=== PATIENT | female | born 1975 | race American Indian/Alaskan Native ===

== ENCOUNTER 2018-03-23 20:45 | Emergency (ER) | payer OTHER ==
[2018-03-23] MEDS ORDERED: TYLENOL ONE (21:10)
[2018-03-23] MEDS ORDERED: TYLENOL PO ONE (21:12)
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
[2018-03-24 02:43] VITALS: BP 124/78
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
[2018-03-24] MEDS ORDERED: NORCO 7.5/325 PO ONE (06:21)
[2018-03-24] MEDS ORDERED: FLEXERIL PO ONE (06:22)
== END 2018-03-24 06:31 | disposition home or self-care (01) ==
LOC: ED 20:45
DX: S40.011A Contusion of right shoulder, initial encounter (principal); S70.01XA Contusion of right hip, initial encounter; S70.11XA Contusion of right thigh, initial encounter; S20.211A Contusion of right front wall of thorax, initial encounter; Z88.0 Allergy status to penicillin; Z86.2 Personal history of diseases of the blood and blood-forming organs and certain disorders involving the immune mechanism; V49.59XA Passenger injured in collision with other motor vehicles in traffic accident, initial encounter; Y93.89 Activity, other specified; Y92.89 Other specified places as the place of occurrence of the external cause; Y99.8 Other external cause status
CPT/HCPCS: 71046

== ENCOUNTER 2018-11-15 18:27 | Emergency (ER) | payer SELFPAY | END 2018-11-15 22:13 | disposition left against medical advice (07) | LOC: ED 18:27 | DX: R07.89 Other chest pain (principal); Z53.21 Procedure and treatment not carried out due to patient leaving prior to being seen by health care provider | CPT/HCPCS: 93005; 93010 ==

== ENCOUNTER 2021-03-30 21:45 | Observation (INO) | payer OTHER ==
--- NOTE | 2021-03-30 22:11 | Emergency Department Report ---
HPI - General Chief Complaint: Overdose Time Seen by Provider: 03/30/21 22:01 - HPI HPI: Room 2 The patient is a 45-year-old female present with a chief complaint of altered mental status/suspected opiate overdose. Per EMS they were initially called for DOA. Please respond to the department where one of the residents was found suspected from an overdose. The patient was apparently found wandering around the apartment in a confused state. EMS states the patient had pinpoint pupils and her sats were dropped to 93% when she would nod off. Patient was administered Narcan 1 mg by EMS who states she then became more alert and responsive. In the ED the patient frequently asks you to repeat your question by asking "huh?!" The patient only complains of her feet feeling cold so she covers them with a blanket. Patient denies taking any drugs ED Past Medical Hx - Past Medical History Previous Medical History?: No Additional medical history: Anemia - Surgical History Additional Surgical History: Left ankle - Family History Family history: no significant - Social History Smoking Status: Never Smoker Substance Use Type: Alcohol - Medications Home Medications: Home Medications Medication Instructions Recorded Confirmed Last Taken Type Ibuprofen [Motrin 600 MG tab] 600 mg PO Q8H PRN #30 tablet 03/24/18 Unknown Rx traMADoL [Ultram 50 MG tab] 50 mg PO Q6HR PRN #12 tablet 03/24/18 Unknown Rx ED Review of Systems ROS: Stated complaint: AMS,DRUG OD Other details as noted in HPI Constitutional: no symptoms reported Eyes: denies: eye pain ENT: denies: throat pain Respiratory: no symptoms reported Cardiovascular: denies: chest pain Endocrine: no symptoms reported Gastrointestinal: denies: abdominal pain Genitourinary: denies: dysuria Musculoskeletal: denies: back pain Neurological: denies: headache Physical Exam - Physical Exam Vital Signs: Vital Signs 03/30/21 22:00 Temperature 98.2 F Pulse Rate 88 Respiratory 18 Rate Blood Pressure 133/73 [Left] O2 Sat by Pulse 98 Oximetry Physical Exam: GENERAL: The patient is well-developed well-nourished female lying on stretcher adjusting she to cover herself not appearing to be in acute distress. [] HEENT: Normocephalic. Atraumatic. Extraocular motions are intact. Patient has moist mucous membranes. NECK: Supple. Trachea midline CHEST/LUNGS: Clear to auscultation. There is no respiratory distress noted. HEART/CARDIOVASCULAR: Regular. There is no tachycardia. There is no gallop rub or murmur. ABDOMEN: Abdomen is soft, nontender. Patient has normal bowel sounds. There is no abdominal distention. SKIN: There is no rash. There is no edema. There is no diaphoresis. NEURO: The patient is awake and alert. Patient appears to be hard of hearing as she frequently asked you to repeat your question. Moves all extremities well. The patient is cooperative. The patient has no focal neurologic deficits. The patient has normal speech MUSCULOSKELETAL: There is no evidence of acute injury. ED Course Vital Signs 03/30/21 22:00 Temperature 98.2 F Pulse Rate 88 Respiratory 18 Rate Blood Pressure 133/73 [Left] O2 Sat by Pulse 98 Oximetry ED Medical Decision Making - Lab Data Result diagrams: 03/30/21 22:47 03/30/21 22:47 - EKG Data -: EKG Interpreted by Me EKG shows normal: sinus rhythm Rate: normal - EKG Data When compared to previous EKG there are: previous EKG unavailable Interpretation: normal EKG, other (No ischemic changes seen) - Radiology Data Radiology results: report reviewed (Chest x-ray), image reviewed (Chest x-ray) interpreted by me: Chest x-ray-no definite focal filtrate, no pneumothorax. [facility] [address] [place] [address] XRa y Report Signed Patient: TRISTIAN SINGH MR#: [id number] : 1975 Acct:[id number] Age/Sex: 45 / F ADM Date: 03/30/21 Loc: ED Attending Dr: Ordering Physician: BRANDY JI MD Date of Service: 03/31/21 Procedure(s): XR chest 1V ap Accession Number(s): [id number] cc: BRANDY JI MD Fluoro Time In Minutes: CHEST 1 VIEW INDICATION / CLINICAL INFORMATION: Altered mental status, elevated troponin. FINDINGS: SUPPORT DEVICES: None. HEART / MEDIASTINUM: No significant abnormality. LUNGS / PLEURA: No significant pulmonary or pleural abnormality. No pneumothorax. ADDITIONAL FINDINGS: No significant additional findings. IMPRESSION: 1. No acute findings. Signer Name: Haider Worthy MD Signed: 03/31/2021 12:50 AM Workstation Name: [id number] Transcribed By: [facility] Dictated By: Haider Worthy MD Electronically Authenticated By: Haider Worthy MD Signed Date/Time: 03/31/2149 DD/ TD/TT: Print Cancel - Differential Diagnosis Substance abuse, rhabdomyolysis, dehydration, Critical care attestation.: If time is entered above; I have spent that time in minutes in the direct care of this critically ill patient, excluding procedure time. ED Disposition Clinical Impression: Rhabdomyolysis, Elevated troponin Disposition: ADMITTED INPATIENT Is pt being admited?: Yes Does the pt Need Aspirin: Yes Condition: Fair Referrals: PRIMARY CARE, [Primary Care Provider] - 3-5 Days Time of Disposition: 01:01 (Hospitalist paged (Dr Leyva))
[2021-03-30 23:33] LABS: Basophils % (Auto) 0.5 % (0.0-1.8); Eosinophils % (Auto) 0.1 % (0.0-4.3); Lymphocytes # (Auto) 0.6 K/mm3 (1.2-5.4); Lymphocytes % (Auto) 5.9 % (13.4-35.0); Mean Corpuscular HGB Conc 29 % (30-34); Monocytes # (Auto) 0.7 K/mm3 (0.0-0.8); Platelet Count 218 K/mm3 (140-440); Red Blood Count 4.67 M/mm3 (3.65-5.03); Red Cell Distribution Width 19.8 % (13.2-15.2)
[2021-03-30 23:43] LABS: Hematocrit 27.9 % (30.3-42.9); Hemoglobin 8.2 gm/dl (10.1-14.3); Mean Corpuscular Volume 60 fl (79-97)
[2021-03-30 23:54] LABS: Creatine Kinase MB 39.1 ng/mL (0.0-4.0)
[2021-03-30 23:55] LABS: Alanine Aminotransferase 521 units/L (7-56); Albumin 3.9 g/dL (3.9-5); BUN/Creatinine Ratio 16; Blood Urea Nitrogen 18 mg/dL (7-17); Calcium 8.5 mg/dL (8.4-10.2); Hemolysis Index 0
[2021-03-30 23:56] LABS: Free T4 (Free Thyroxine) 0.99 ng/dL (0.76-1.46)
[2021-03-31] MEDS ORDERED: ASPIRIN 325 MG TAB PO ONE (00:03)
[2021-03-31] MEDS ORDERED: SODIUM CHLORIDE 0.9% 1000 ML 1,000 ML IV ONE ×2 (00:10)
--- NOTE | 2021-03-31 00:55 | XRay Report ---
CHEST 1 VIEW INDICATION / CLINICAL INFORMATION: Altered mental status, elevated troponin. FINDINGS: SUPPORT DEVICES: None. HEART / MEDIASTINUM: No significant abnormality. LUNGS / PLEURA: No significant pulmonary or pleural abnormality. No pneumothorax. ADDITIONAL FINDINGS: No significant additional findings. IMPRESSION: 1. No acute findings. Signer Name: Haider Worthy MD Signed: 03/31/2021 12:50 AM Workstation Name: [id number]
[2021-03-31 02:23] LABS: Chol/HDL Ratio 2.03 %; HDL Cholesterol 58 mg/dL (40-59); LDL Cholesterol,Direct 60 mg/dL (50-130)
[2021-03-31] MEDS ORDERED: MAGNESIUM HYDROXIDE (MOM) ORAL LIQD UDC PO PRN (02:58)
[2021-03-31] MEDS ORDERED: MORPHINE 4 MG/1 ML INJ IV PRN (02:58)
[2021-03-31] MEDS ORDERED: MORPHINE 2 MG/1 ML INJ IV PRN ×2 (02:58)
[2021-03-31] MEDS ORDERED: NITROGLYCERIN 0.4 MG TAB SUBL SL PRN (02:58)
[2021-03-31] MEDS ORDERED: ONDANSETRON 4 MG/2 ML INJ IV PRN (02:58)
[2021-03-31] MEDS ORDERED: ACETAMINOPHEN 325 MG TAB PO PRN (02:58)
[2021-03-31] MEDS ORDERED: traMADol 50 MG TAB PO PRN (02:58)
--- NOTE | 2021-03-31 03:13 | History and Physical Report ---
History of Present Illness Date of examination: 03/31/21 Date of admission: 03/31/21 01:29 Chief complaint: Altered mental status History of present illness: 45-year-old -Armenian female with past medical history of anemia presents to the emergency room today for altered mental status/possible opiate overdose. Patient was found to be wandering around an apartment and was found to be confused. She was also said to have had pinpoint pupils and oxygen saturation was about 93% on room air. She was given 1 mg of Narcan by EMS became more alert not responsive. Patient still remains intermittently confused upon arrival in the emergency room however she she was able to respond to questions appropriately. She cannot recall how she got to the emergency room. She denies any fever or chills, no chest pain or shortness of breath, no nausea vomiting and no abdominal pain. Patient denies any sick contacts and no recent travel. Denies any contact with anyone with COVID-19. Work-up in the emergency room today, chest x-ray shows no acute findings. Labs reveals hemoglobin of 8.2 and hematocrit of 27.9. Liver enzymes were elevated AST of 4 5 and ALT of 521. Creatinine kinase was greater than 4000. Troponin 0 0.061. Cocaine positive on the UDS. Past History Past Medical History: anemia Past Surgical History: Other (Left ankle surgery) Social history: alcohol abuse Medications and Allergies Allergies Allergy/AdvReac Type Severity Reaction Status Date / Time Penicillins Allergy Hives Verified 03/23/18 20:58 Home Medications Medication Instructions Recorded Confirmed Last Taken Type No Known Home Medications [No 03/31/21 03/31/21 Unknown History Reported Home Medications] Active Meds: Active Medications Acetaminophen (Acetaminophen 325 Mg Tab) 650 mg PO Q4H PRN PRN Reason: Pain MILD(1-3)/Fever >100.5/MORALES Aspirin (Aspirin Ec 325 Mg Tab) 325 mg PO QDAY ADELAIDA Sodium Chloride (Nacl 0.9% 1000 Ml) 1,000 mls @ 250 mls/hr IV ONCE ONE Stop: 03/31/21 04:09 Sodium Chloride (Nacl 0.9% 1000 Ml) 1,000 mls @ 150 mls/hr IV DIRECT ADELAIDA Magnesium Hydroxide (Magnesium Hydroxide (Mom) Oral Liqd Udc) 30 ml PO Q4H PRN PRN Reason: Constipation Morphine Sulfate (Morphine 2 Mg/1 Ml Inj) 2 mg IV Q4H PRN PRN Reason: Pain, Moderate (4-6) Morphine Sulfate (Morphine 4 Mg/1 Ml Inj) 4 mg IV Q4H PRN PRN Reason: Pain , Severe (7-10) Morphine Sulfate (Morphine 4 Mg/1 Ml Inj) 2 mg IV Q5MIN PRN PRN Reason: Chest Pain Nitroglycerin (Nitroglycerin 0.4 Mg Tab Subl) 0.4 mg SL Q5M PRN PRN Reason: Chest Pain Ondansetron HCl (Ondansetron 4 Mg/2 Ml Inj) 4 mg IV Q8H PRN PRN Reason: Nausea And Vomiting Sodium Chloride (Sodium Chloride 0.9% 10 Ml Flush Syringe) 10 ml IV BID ADELAIDA Sodium Chloride (Sodium Chloride 0.9% 10 Ml Flush Syringe) 10 ml IV PRN PRN PRN Reason: LINE FLUSH Sodium Chloride (Sodium Chloride 0.9% 10 Ml Flush Syringe) 10 ml IV PRN PRN PRN Reason: LINE FLUSH Tramadol HCl (Tramadol 50 Mg Tab) 50 mg PO Q6H PRN PRN Reason: Pain, Moderate (4-6) Review of Systems Constitutional: no fever, no chills Ears, nose, mouth and throat: no nasal congestion, no sore throat Cardiovascular: no chest pain, no palpitations Respiratory: no cough, no shortness of breath Genitourinary Female: no pelvic pain, no flank pain, no dysuria, no hematuria Musculoskeletal: no neck pain, no low back pain Integumentary: no rash, no pruritis Neurological: confusion, no headaches Psychiatric: no anxiety, no depression Endocrine: no polyphagia, no polydipsia, no polyuria, no nocturia Exam - Constitutional Vitals: Temp Pulse Resp BP Pulse Ox 98.2 F 76 13 143/80 99 03/30/21 22:00 03/31/21 01:30 03/31/21 01:30 03/31/21 01:30 03/31/21 01:30 General appearance: Present: no acute distress, well-nourished - EENT Eyes: Present: PERRL, EOM intact. Absent: scleral icterus ENT: hearing intact, clear oral mucosa, dentition normal - Neck Neck: Present: supple, normal ROM - Respiratory Respiratory effort: normal Respiratory: bilateral: CTA - Cardiovascular Rhythm: regular Heart Sounds: Present: S1 & S2. Absent: gallop, systolic murmur, diastolic murmur, rub, click - Extremities Extremities: no ischemia, pulses intact, pulses symmetrical, No edema, normal temperature, normal color, Full ROM Peripheral Pulses: within normal limits - Abdominal General gastrointestinal: Present: soft, non-tender, non-distended, normal bowel sounds. Absent: mass - Integumentary Integumentary: Present: clear, warm, dry. Absent: rash - Musculoskeletal Musculoskeletal: strength equal bilaterally - Psychiatric Psychiatric: appropriate mood/affect, intact judgment & insight, memory intact, cooperative - Neurologic Neurologic: CNII-XII intact, no focal deficits, moves all extremities HEART Score - HEART Score Troponin: Troponin T 0.061 ng/mL (0.00-0.029) H 03/30/21 22:47 Results - Labs CBC & Chem 7: 03/30/21 22:47 03/31/21 05:20 Labs: Abnormal lab results 03/30/21 03/30/21 03/30/21 Range/Units 22:47 22:47 22:47 Hgb 8.2 L (10.1-14.3) gm/dl Hct 27.9 L (30.3-42.9) % MCV 60 L (79-97) fl MCH 18 L (28-32) pg MCHC 29 L (30-34) % RDW 19.8 H (13.2-15.2) % Lymph % (Auto) 5.9 L (13.4-35.0) % Lymph # (Auto) 0.6 L (1.2-5.4) K/mm3 Seg Neutrophils % 86.5 H (40.0-70.0) % Seg Neutrophils # 8.7 H (1.8-7.7) K/mm3 Carbon Dioxide 21 L (22-30) mmol/L BUN 18 H (7-17) mg/dL AST 405 H (5-40) units/L ALT 521 H (7-56) units/L Ammonia 15.0 L (25-60) umol/L Total Creatine Kinase 4398 H (30-135) units/L CK-MB (CK-2) 39.1 H (0.0-4.0) ng/mL Troponin T 0.061 H (0.00-0.029) ng/mL Assessment and Plan - Patient Problems (1) Rhabdomyolysis Current Visit: Yes Status: Acute Plan to address problem: Patient started on IV fluid normal saline. Will monitor CK levels. (2) Elevated troponin Current Visit: Yes Status: Acute Plan to address problem: Etiology unclear. Possibly related to cocaine use. Patient has denied any chest pain. No acute EKG changes. Consult placed to cardiology for evaluation. (3) Anemia Current Visit: Yes Status: Acute Plan to address problem: Microcytic. Possibly chronic. We will monitor CBC. (4) Elevated liver enzymes Current Visit: Yes Status: Acute Plan to address problem: Possibly secondary to alcohol abuse. We will trend liver enzymes. Consult placed to gastroenterology for evaluation. (5) DVT prophylaxis Current Visit: Yes Status: Acute Plan to address problem: Patient placed on subcutaneous heparin. (6) Full code status Current Visit: Yes Status: Acute Plan to address problem: Patient is full code.
[2021-03-31] MEDS: SODIUM CHLORIDE 0.9% 1000 ML 1,000 ML IV SCH ×3 (04:45→20:00)
[2021-03-31 06:25] LABS: BUN/Creatinine Ratio 14; Blood Urea Nitrogen 15 mg/dL (7-17); Calcium 8.1 mg/dL (8.4-10.2); Hemolysis Index 18
--- NOTE | 2021-03-31 09:11 | Consultation ---
History of Present Illness Consult date: 03/31/21 Requesting physician: RACIEL SAXENA Consult reason: elevated troponin History of present illness: Pt is a 45-year-old AA female, previously unknown to our practice, who was brought in via EMS for altered mental status and suspected overdose. Per ER documentation, EMS was initially called to respond to a DOA case. Per discussion with pt's RN, who reached out to pt's mother for more information, the aforementioned individual was pt's boyfriend, who reportedly overdosed on cocaine. Pt was also using cocaine and was found by EMS wandering around the apartment complex. She was reportedly not alert, "nodding off," had pinpoint pupils, and SpO2 of 93% on room air. Pt became more response s/p administration of 1mg Narcan. Upon assessment today, she is aware she is in the hospital but does not know why. She is otherwise disoriented. She denies any complaints. Pt denies abusing any prescription or illegal substances. Past History Past Medical History: anemia Past Surgical History: hysterectomy, Other (tubal ligation). denies: CABG, PTCA Social history: alcohol abuse (occasional wine (2 glasses/week)). denies: smoking Family history: no significant family history Medications and Allergies Allergies Allergy/AdvReac Type Severity Reaction Status Date / Time Penicillins Allergy Hives Verified 03/23/18 20:58 Home Medications Medication Instructions Recorded Confirmed Last Taken Type Ibuprofen [Motrin 600 MG tab] 600 mg PO Q8H PRN #30 tablet 03/24/18 Unknown Rx traMADoL [Ultram 50 MG tab] 50 mg PO Q6HR PRN #12 tablet 03/24/18 Unknown Rx Active Meds: Active Medications Acetaminophen (Acetaminophen 325 Mg Tab) 650 mg PO Q4H PRN PRN Reason: Pain MILD(1-3)/Fever >100.5/MORALES Aspirin (Aspirin Ec 325 Mg Tab) 325 mg PO QDAY ADELAIDA Sodium Chloride (Nacl 0.9% 1000 Ml) 1,000 mls @ 150 mls/hr IV DIRECT ADELAIDA Last Admin: 03/31/21 04:45 Dose: 150 mls/hr Documented by: Magnesium Hydroxide (Magnesium Hydroxide (Mom) Oral Liqd Udc) 30 ml PO Q4H PRN PRN Reason: Constipation Morphine Sulfate (Morphine 2 Mg/1 Ml Inj) 2 mg IV Q4H PRN PRN Reason: Pain, Moderate (4-6) Morphine Sulfate (Morphine 4 Mg/1 Ml Inj) 4 mg IV Q4H PRN PRN Reason: Pain , Severe (7-10) Morphine Sulfate (Morphine 2 Mg/1 Ml Inj) 2 mg IV Q5MIN PRN PRN Reason: Chest Pain Nitroglycerin (Nitroglycerin 0.4 Mg Tab Subl) 0.4 mg SL Q5M PRN PRN Reason: Chest Pain Ondansetron HCl (Ondansetron 4 Mg/2 Ml Inj) 4 mg IV Q8H PRN PRN Reason: Nausea And Vomiting Sodium Chloride (Sodium Chloride 0.9% 10 Ml Flush Syringe) 10 ml IV BID ADELAIDA Sodium Chloride (Sodium Chloride 0.9% 10 Ml Flush Syringe) 10 ml IV PRN PRN PRN Reason: LINE FLUSH Sodium Chloride (Sodium Chloride 0.9% 10 Ml Flush Syringe) 10 ml IV PRN PRN PRN Reason: LINE FLUSH Tramadol HCl (Tramadol 50 Mg Tab) 50 mg PO Q6H PRN PRN Reason: Pain, Moderate (4-6) Review of Systems ROS unobtainable: due to mental status Physical Examination Last Vital Signs Temp 98.7 F 03/31/21 04:22 Pulse 75 03/31/21 04:22 Resp 20 03/31/21 04:22 BP 125/84 03/31/21 04:22 Pulse Ox 98 03/31/21 05:32 General appearance: no acute distress HEENT: Positive: Normocephaly Neck: Positive: neck supple, trachea midline Cardiac: Positive: Reg Rate and Rhythm, S1/S2 Lungs: Positive: Decreased Breath Sounds Neuro: Positive: Other (disoriented) Abdomen: Positive: Soft. Negative: Tender Skin: Negative: Rash Musculoskeletal: No Pain Extremities: Present: lower extr. pulses. Absent: edema Results 03/30/21 22:47 03/31/21 05:20 Cardiac Enzymes 03/30/21 Range/Units 22:47 AST 405 H (5-40) units/L CK-MB (CK-2) 39.1 H (0.0-4.0) ng/mL Coagulation 03/30/21 Range/Units 22:47 APTT 26.3 (24.2-36.6) Sec. Lipids 03/30/21 Range/Units 22:47 Triglycerides 52 (2-149) mg/dL Cholesterol 118 (50-199) mg/dL HDL Cholesterol 58 (40-59) mg/dL Cholesterol/HDL Ratio 2.03 % CBC 03/30/21 Range/Units 22:47 WBC 10.0 (4.5-11.0) K/mm3 RBC 4.67 (3.65-5.03) M/mm3 Hgb 8.2 L (10.1-14.3) gm/dl Hct 27.9 L (30.3-42.9) % Plt Count 218 (140-440) K/mm3 Lymph # (Auto) 0.6 L (1.2-5.4) K/mm3 [place] # (Auto) 0.7 (0.0-0.8) K/mm3 Eos # (Auto) 0.0 (0.0-0.4) K/mm3 Baso # (Auto) 0.0 (0.0-0.1) K/mm3 Comprehensive Metabolic Panel 03/30/21 03/31/21 Range/Units 22:47 05:20 Sodium 140 140 (137-145) mmol/L Potassium 3.6 3.8 (3.6-5.0) mmol/L Chloride 106.7 110.2 H (98-107) mmol/L Carbon Dioxide 21 L 18 L (22-30) mmol/L BUN 18 H 15 (7-17) mg/dL Creatinine 1.1 1.1 (0.6-1.2) mg/dL Glucose 95 82 (65-100) mg/dL Calcium 8.5 8.1 L (8.4-10.2) mg/dL AST 405 H (5-40) units/L ALT 521 H (7-56) units/L Alkaline Phosphatase 73 (35-129) units/L Total Protein 7.2 (6.3-8.2) g/dL Albumin 3.9 (3.9-5) g/dL - Imaging and Cardiology Echo: pending EKG: report reviewed, image reviewed - EKG Interpretation EKG: no acute changes EKG interpretations - Telemetry EKG Rhythm: Sinus Rhythm - EKG Sinus rhythms and dysrhythmias: sinus rhythm Assessment and Plan Assessment: Cocaine + Rhabdomyolysis Elevated LFTs Anemia (?chronic) Elevated Troponin Plan: Echo reviewed - EF 60-65%, mild TR, RVSP 38mmHg, mild RI. Plan for Lexiscan stress MPI in AM. NPO after midnight. Pt seen in conjunction with Dr. Dasilva, who agrees with the assessment and plan of care. - Patient Problems (1) Cocaine abuse Current Visit: Yes Status: Acute (2) Rhabdomyolysis Current Visit: Yes Status: Acute (3) Elevated liver enzymes Current Visit: Yes Status: Acute (4) Anemia Current Visit: Yes Status: Acute (5) Elevated troponin Current Visit: Yes Status: Acute
[2021-03-31 12:00] LABS: Amphetamine Screen,Urine Negative; Benzodiazepines Screen,Urine Negative; Cannabinoid Screen,Urine Negative; Methadone Screen,Urine Negative; Opiate Screen,Urine Negative
[2021-03-31 12:54] LABS: Cocaine Screen,Urine Positive
[2021-03-31 13:20] LABS: Hepatitis C Virus Antibody Non-Reactive (NonReactive)
[2021-03-31 14:25] LABS: Hepatitis B Surface Antigen Nonreactive (Negative)
--- NOTE | 2021-03-31 17:22 | Electrocardiograph Report ---
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
[2021-04-01] MEDS: SODIUM CHLORIDE 0.9% 1000 ML 1,000 ML IV SCH (03:30)
[2021-04-01] MEDS ORDERED: REGADENOSON 0.4 MG/5 ML INJ IV ONE (08:44)
[2021-04-01] MEDS ORDERED: ASPIRIN EC 325 MG TAB PO SCH (10:00)
--- NOTE | 2021-04-01 11:22 | Progress Note ---
Assessment and Plan Assessment: Cocaine + Rhabdomyolysis Elevated LFTs Anemia (?chronic) Non-DC Troponin Elevation Plan: Echo reviewed - EF 60-65%, mild TR, RVSP 38mmHg, mild [place]. Lexiscan stress MPI this AM noted to be negative for ischemia. May start PO Nifedipine if BP optimization is needed. Cardiac status is otherwise stable. Nothing further to add. Will sign off. Pt seen in conjunction with Dr. Ana Ravi, who agrees with the assessment and plan of care. - Patient Problems (1) Cocaine abuse Current Visit: Yes Status: Acute (2) Rhabdomyolysis Current Visit: Yes Status: Acute (3) Elevated liver enzymes Current Visit: Yes Status: Acute (4) Anemia Current Visit: Yes Status: Acute (5) Elevated troponin Current Visit: Yes Status: Acute Subjective Date of service: 04/01/21 Principal diagnosis: Cocaine Abuse Interval history: Seen in stress lab this AM. No cardiac complaints. Tele reviewed - SR 80s, no events. Objective Last Vital Signs Temp 98.3 F 04/01/21 12:03 Pulse 97 H 04/01/21 12:03 Resp 20 04/01/21 12:03 BP 168/93 04/01/21 12:03 Pulse Ox 100 04/01/21 12:03 - Physical Examination General: No Apparent Distress HEENT: Positive: EOMI, Normocephaly Neck: Positive: neck supple, trachea midline Cardiac: Positive: Reg Rate and Rhythm, S1/S2 Lungs: Positive: clear to auscultation Neuro: Positive: Grossly Intact Abdomen: Positive: Soft. Negative: Tender Skin: Negative: Rash Musculoskeletal: No Pain Extremities: Present: lower extr. pulses. Absent: edema - Imaging and Cardiology EKG: report reviewed, image reviewed Pharmacologic stress test: report reviewed (04/01/2021 - negative for ischemia) Echo: report reviewed (03/31/2021 - EF 60-65%, mild TR, RVSP 38mmHg, mild [place]) - Telemetry EKG Rhythm: Sinus Rhythm - EKG Sinus rhythms and dysrhythmias: sinus rhythm
--- NOTE | 2021-04-01 11:43 | Treadmill Report ---
DATE OF SERVICE: 04/01/2021 NUCLEAR PERFUSION STUDY REFERRING PHYSICIAN: Hospitalshadi lanier. PROTOCOL: The patient was assessed in postoperative state given 10 mCi technetium at rest. The patient had rest imaging. The patient underwent Lexiscan stress test per standard protocol. At peak stress, the patient given 26 mCi of technetium-99m. Shortly thereafter stress imaging. Raw imaging reveals mild GI artifact, no significant motion artifact. SPECT imaging examined carefully in horizontal long axis, vertical long axis, short axis views. There was normal homogeneous uptake of radioisotope in all port segments. No evidence of a significant fixed or reversible perfusion defect suggestive of prior infarction or ischemia. Gated wall motion reveals normal systolic thickening, calculated ejection fraction of 63%. No TID. CONCLUSIONS: 1. Normal myocardial perfusion scan without evidence of active ischemia or prior infarction. 2. Normal left ventricular systolic performance without evidence of transient ischemic dilatation or stress induced segmental wall motion abnormalities. TID: [id number] RECEIPT: [id number] JOHN/ZEYAD
[2021-04-01 16:06] LABS: Basophils # (Auto) 0.1 K/mm3 (0.0-0.1); Basophils % (Auto) 0.8 % (0.0-1.8); Eosinophils # (Auto) 0.2 K/mm3 (0.0-0.4); Eosinophils % (Auto) 3.2 % (0.0-4.3); Lymphocytes # (Auto) 1.7 K/mm3 (1.2-5.4); Lymphocytes % (Auto) 25.3 % (13.4-35.0); Mean Corpuscular HGB Conc 29 % (30-34); Monocytes # (Auto) 0.7 K/mm3 (0.0-0.8); Monocytes % (Auto) 11.3 % (0.0-7.3); Platelet Count 174 K/mm3 (140-440); Red Cell Distribution Width 19.9 % (13.2-15.2)
[2021-04-01 16:08] LABS: BUN/Creatinine Ratio 7; Blood Urea Nitrogen 6 mg/dL (7-17); Calcium 8.3 mg/dL (8.4-10.2); Hemolysis Index 2
[2021-04-01 16:10] LABS: Albumin 3.3 g/dL (3.9-5); Bilirubin,Direct 0.2 mg/dL (0-0.2)
[2021-04-01 16:13] LABS: Hematocrit 26.9 % (30.3-42.9); Hemoglobin 7.9 gm/dl (10.1-14.3); Mean Corpuscular Volume 60 fl (79-97)
[2021-04-01 16:27] LABS: INR 1.05 (0.87-1.13)
[2021-04-01 16:29] VITALS: BP 114/61
--- NOTE | 2021-04-01 18:48 | Discharge Summary ---
Providers - Providers Date of Admission: 03/31/21 01:29 Date of discharge: 04/01/21 Attending physician: JOHNATHAN MURDOCK 03/31/21 Consult to Cardiac Rehabilitation [CONS] Routine Reason For Exam: Phase I 03/31/21 02:59 Consult to Cardiology [CONS] Routine Consulting Provider: TINY ALVARENGA Reason For Exam: ELEVATED TROPONIN Primary care physician: DATA ANALYSIS ASSISTANT Hospitalization Condition: Fair Procedures: Lexiscan is normal Echocardiogram good ejection fraction reviewed Hospital course: 45-year-old -[place] female with past medical history of anemia presents to the emergency room today for altered mental status/possible opiate overdose. Patient was found to be wandering around an apartment and was found to be confused. She was also said to have had pinpoint pupils and oxygen saturation was about 93% on room air. She was given 1 mg of Narcan by EMS became more alert not responsive. Patient still remains intermittently confused upon arrival in the emergency room however she she was able to respond to questions appropriately. She cannot recall how she got to the emergency room. She denies any fever or chills, no chest pain or shortness of breath, no nausea vomiting and no abdominal pain. Patient denies any sick contacts and no recent travel. Denies any contact with anyone with COVID-19. Work-up in the emergency room today, chest x-ray shows no acute findings. Labs reveals hemoglobin of 8.2 and hematocrit of 27.9. Liver enzymes were elevated AST of 4 5 and ALT of 521. Creatinine kinase was greater than 4000. Troponin 0 0.061. Cocaine positive on the UDS. Assessment and Plan - Patient Problems (1) Rhabdomyolysis Current Visit: Yes Status: Acute Plan to address problem: CK levels have improved to 2000 from 4000 (2) Elevated troponin Current Visit: Yes Status: Acute Plan to address problem: Lexiscan negative (3) Anemia Current Visit: Yes Status: Acute Plan to address problem: Chronic To take iron supplements (4) Elevated liver enzymes Current Visit: Yes Status: Acute Plan to address problem: Secondary to alcohol abuse and cocaine abuse Patient counseled (5) DVT prophylaxis Current Visit: Yes Status: Acute Plan to address problem: Patient placed on subcutaneous heparin. (6) Full code status Current Visit: Yes Status: Acute Plan to address problem: Patient is full code. Disposition: HOME / SELF CARE / HOMELESS Final Discharge Diagnosis (Prints w/discharge instructions): Rhabdomyolysis. NSTEMI 2. Cocaine abuse. EtOH abuse. Transaminitis Time spent for discharge: 35 minutes - Discharge Diagnoses (1) Rhabdomyolysis Status: Acute (2) Transaminitis Status: Acute (3) Cocaine abuse Status: Acute (4) Anemia Status: Acute Core Measure Documentation - Palliative Care Palliative Care/ Comfort Measures: Not Applicable - Core Measures Any of the following diagnoses?: none Exam - Constitutional Vitals: Temp Pulse Resp BP Pulse Ox 98.3 F 80 20 114/61 100 04/01/21 15:46 04/01/21 15:46 04/01/21 15:46 04/01/21 15:46 04/01/21 15:46 General appearance: Present: no acute distress, well-nourished - EENT Eyes: Present: PERRL ENT: hearing intact, clear oral mucosa - Neck Neck: Present: supple, normal ROM - Respiratory Respiratory effort: normal Respiratory: bilateral: CTA - Cardiovascular Heart rate: 78 Rhythm: regular Heart Sounds: Present: S1 & S2. Absent: rub, click - Extremities Extremities: no ischemia, pulses symmetrical, No edema Peripheral Pulses: within normal limits - Abdominal General gastrointestinal: Present: soft, non-tender, non-distended, normal bowel sounds Female genitourinary: Present: normal - Integumentary Integumentary: Present: clear, warm, dry - Musculoskeletal Musculoskeletal: gait normal, strength equal bilaterally - Psychiatric Psychiatric: appropriate mood/affect, intact judgment & insight - Neurologic Neurologic: CNII-XII intact, moves all extremities Plan Activity: no restrictions Diet: regular Follow up with: PRIMARY CARE, [Primary Care Provider] - 3-5 Days
--- NOTE | 2021-04-02 10:00 | Electrocardiograph Report ---
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
--- NOTE | 2021-04-02 10:03 | Electrocardiograph Report ---
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
== END 2021-04-01 23:55 | disposition home or self-care (01) ==
LOC: ED 21:45 → 4A 03-31 01:29
PROVIDERS: ADMIT Internal Medicine Geriatric Medicine; ATTEND Internal Medicine
DX: M62.82 Rhabdomyolysis (principal); D64.9 Anemia, unspecified; R74.01 Elevation of levels of liver transaminase levels; R77.8 Other specified abnormalities of plasma proteins; R79.89 Other specified abnormal findings of blood chemistry; F14.10 Cocaine abuse, uncomplicated; Z79.899 Other long term (current) drug therapy; Z98.890 Other specified postprocedural states; Z79.82 Long term (current) use of aspirin
CPT/HCPCS: 36415; 71045; 78452; 80048; 80053; 80061; 80074; 80076; 80307; 82140; 82550; 82553; 84439; 84443; 84484; 84703; 85025; 85610; 85730; 93005; 93017; 93306; 96360; 96361; 99285; A9502; G0378; J2785; J7030; 80320; G0480